=== PATIENT | male | born 1995 | race Asian ===

== ENCOUNTER 2020-03-23 17:44 | Emergency (ER) | payer OTHER ==
[~2020-03-23] VITALS: Ht 160 cm; Wt 55.3 kg
[2020-03-23 18:51] VITALS: BP_SYST 123
--- NOTE | 2020-03-23 18:57 | NUR ---
PATIENT RETURNED TO WAITING ROOM PENDING BED AVAILABILITY; FULL DISTAL N/C/R IS INTACT
--- NOTE | 2020-03-23 20:01 | NUR ---
Patient to ER bed 3 to gown for evaluation. Side rails up. Report given to PHOEBE GONZALES.
--- NOTE | 2020-03-23 20:10 | NUR ---
PATIENT BROUGHT IN AMBULATORY FROM HOME COMPLAINING OF RIGHT SHOULDER PAIN AFTER PLAYING TENNIS AND HEARING A POP. DEFORMITY NOTED TO THE RIGHT ANTERIOR SHOULDER. LIMITED RANGE OF MOTION. PAIN 6/10. NO OTHER COMPLAINTS/INJURIES PER PATIENT OR NOTED. WILL CONTINUE TO MONITOR.
--- NOTE | 2020-03-23 20:33 | NUR ---
PATIENT REQUESTING TO DO REDUCTION WITHOUT SEDATION. APPLIED COUNTER PRESSURE. PATIENT TOLERATED WELL. PATIENT PLACED IN RIGHT SHOULDER IMMOBILIZER. PAIN 0/10
--- NOTE | 2020-03-23 20:33 | NUR ---
ER at bedside examining patient.
--- NOTE | 2020-03-23 20:35 | NUR ---
PATIENT OFF UNIT TO RADIOLOGY
--- NOTE | 2020-03-23 20:39 | NUR ---
PATIENT RETURNED FROM RADIOLOGY
--- NOTE | 2020-03-23 21:00 | NUR ---
TODD Cordova at bedside DISCUSSING RESULTS
[2020-03-23 21:06] VITALS: BP_SYST 118
--- NOTE | 2020-03-23 21:06 | NUR ---
Patient given written and verbal discharge instructions and verbalizes understanding. ER MD discussed with patient the results and treatment provided. Patient in stable condition. ID arm band removed. NO RX given. Patient educated on pain management and to follow up with PMD. Pain Scale 0/10 Opportunity for questions provided and answered.
== END 2020-03-23 21:06 | disposition home or self-care (01) ==
LOC: SED 17:44
DX: S43.141A Inferior dislocation of right acromioclavicular joint, initial encounter (principal); X58.XXXA Exposure to other specified factors, initial encounter; Y93.73 Activity, racquet and hand sports; Y92.89 Other specified places as the place of occurrence of the external cause; Y99.8 Other external cause status
CPT/HCPCS: 73030; 99283; 99284